=== PATIENT | female | born 1950 | race Caucasian/White ===

== ENCOUNTER 2019-08-31 13:11 | Outpatient (CLI) | payer MEDICARE ==
--- NOTE | 2019-08-31 13:57 | MMO ---
Bilateral MAMMO Bilat Screen [facility]. CLINICAL HISTORY: Patient is 68 years old and is seen for screening. The patient has the following family history of breast cancer: daughter, at age 45. The patient has no personal history of cancer. The patient has a history of right Excisional Biopsy in December, - benign. VIEWS: The views performed were: bilateral craniocaudal with tomosynthesis and bilateral mediolateral oblique with tomosynthesis. FILMS COMPARED: The present examination has been compared to prior imaging studies performed at [facility] on 02/09/2015, 02/19/2016, 02/25/2016 and 04/07/2017. This study has been interpreted with the assistance of computer-aided detection. MAMMOGRAM FINDINGS: The breasts are heterogeneously dense, which could obscure a lesion on mammography. There are stable benign appearing calcifications seen in both breasts. There are also vascular calcifications. There are no suspicious masses, suspicious calcifications, or new areas of architectural distortion. IMPRESSION: THERE IS NO MAMMOGRAPHIC EVIDENCE OF MALIGNANCY. A ROUTINE FOLLOW-UP MAMMOGRAM IN 1 YEAR IS RECOMMENDED. THE RESULTS OF THIS EXAM WERE SENT TO THE PATIENT. ACR BI-RADS Category 2 - Benign finding MAMMOGRAPHY NOTE: 1. A negative mammogram report should not delay a biopsy if a dominant of clinically suspicious mass is present. 2. Approximately 10% to 15% of breast cancers are not detected by mammography. 3. Adenosis and dense breasts may obscure an underlying neoplasm. Reported by: DILIA GASPAR MD Electonically Signed: [id number]
== END 2019-08-31 13:12 | disposition home or self-care (01) ==
LOC: BICMAMMO 13:11
PROVIDERS: ATTEND Internal Medicine
DX: Z12.31 Encounter for screening mammogram for malignant neoplasm of breast (principal); Z80.3 Family history of malignant neoplasm of breast; Z91.89 Other specified personal risk factors, not elsewhere classified
CPT/HCPCS: 77063; 77067

== ENCOUNTER 2020-01-02 10:24 | Outpatient (CLI) | payer MEDICARE ==
--- NOTE | 2020-01-02 10:56 | RAD ---
EXAM: XR Cerv Sp Ap Lat STANDARD PROVIDED CLINICAL HISTORY: Right shoulder and neck pain. No known injury cervical radiculopathy COMPARISON: None FINDINGS: C1 to cervicothoracic junction is seen on provided lateral images. There is straightening of the norm al cervical lordotic curvature There is trace retrolisthesis of C5 on C6 on extension which corrects on flexion. No anterior subluxation is seen. The vertebral body heights are within normal li mits. Scattered osteophytes are seen in the cervical spine. There is mild narrowing of the intervertebral disc spaces at the C4-5 and C6-7 levels. Prevertebral soft tissues are within normal l imits. IMPRESSION: Mild degenerative changes in the cervical spine with trace retrolisthesis of C5 on C6 seen on extensi on which corrects on flexion.
--- NOTE | 2020-01-02 11:42 | MRI ---
MRI cervical spine noncontrast: DATE: 01/02/2020 HISTORY: 69-year-old female with cervical radiculopathy and neck pain COMPARISON: None FINDINGS: Reversal of curvature, with fulcrum of the mild kyphosis at C4-5. Vertebral body heights are maintained. No major bone marrow signal abnormality. Cervical spinal cord is normal in size and signal. Disc space narrowing is mild to moderate at C4-5, mild at C5-6, and mild to moderate at C6-7. C1-2: No central stenosis. C2-3: Normal disc. No central or high-grade neural foraminal stenosis. Incompletely evaluated at leas t moderate right facet DJD. Moderate to severe left facet DJD. C3-4: No high-grade right facet DJD. Moderate to severe left facet DJD. Disc space maintained. Minima l anterolisthesis of C3 on C4. No central stenosis. No right neural foraminal stenosis. Moderate left neural foraminal stenosis. C4-5: Broad-based disc-osteophyte complex abuts and slightly indents the ventral surface of the spina l cord. Despite this, there is no central spinal canal stenosis. Moderate sized right uncinate process osteophytes cause moderate to severe right neural foraminal stenosis. Small left uncinate pro cess osteophytes. Mild left neural foraminal stenosis. Moderate left facet DJD. Right facet complex incompletely imaged on sagittal sequences. C5-6: Moderate size bilateral uncinate process osteophytes cause severe right neural foraminal stenos is and moderate to severe left neural foraminal stenosis. Broad-based disc-osteophyte complex. Thickened ligamentum flavum. Moderate central spinal canal stenosis. C6-7: In addition to a broad-based disc-osteophyte complex that encroaches upon ventral aspect of spi nal canal, there is a shallow focal left paracentral disc protrusion. Moderate size right and small left uncinate process osteophytes. Mild to moderate right and moderate left neural foraminal stenosis . Normal facet joints. No high-grade central stenosis. C7-T1: Spinal canal is generous in caliber. Mild right facet DJD. Normal left facet joint. No neural foraminal stenosis. IMPRESSION: 1.) Cervical spondylosis consisting of high-grade left upper facet joints osteoarthrosis, and several levels of low-grade degenerative disc disease. 2) multilevel high-grade neural foraminal stenosis.
== END 2020-01-02 10:25 | disposition home or self-care (01) ==
LOC: TBSIIMAG 10:24
PROVIDERS: ATTEND Neurological Surgery
DX: M47.22 Other spondylosis with radiculopathy, cervical region (principal); M48.02 Spinal stenosis, cervical region; M50.121 Cervical disc disorder at C4-C5 level with radiculopathy
CPT/HCPCS: 72040; 72141

== ENCOUNTER 2021-05-07 11:03 | Outpatient (CLI) | payer MEDICARE | END 2021-05-07 11:04 | disposition home or self-care (01) | LOC: BICMAMMO 11:03 | PROVIDERS: ATTEND Internal Medicine | DX: Z12.31 Encounter for screening mammogram for malignant neoplasm of breast (principal); Z91.89 Other specified personal risk factors, not elsewhere classified; Z80.3 Family history of malignant neoplasm of breast | CPT/HCPCS: 77063; 77067 ==

== ENCOUNTER 2021-06-17 14:37 | Outpatient (CLI) | payer MEDICARE | END 2021-06-17 14:38 | disposition home or self-care (01) | LOC: SCSMRI 14:37 | PROVIDERS: ATTEND Family Medicine | DX: M47.816 Spondylosis without myelopathy or radiculopathy, lumbar region (principal); M51.9 Unspecified thoracic, thoracolumbar and lumbosacral intervertebral disc disorder; G89.4 Chronic pain syndrome; M51.36 Other intervertebral disc degeneration, lumbar region; M48.061 Spinal stenosis, lumbar region without neurogenic claudication | CPT/HCPCS: 72100; 72148 ==

== ENCOUNTER 2022-04-15 13:47 | Outpatient (CLI) | payer MEDICARE | END 2022-04-15 13:48 | disposition home or self-care (01) | LOC: BICULT 13:47 | PROVIDERS: ATTEND Urology | DX: N39.0 Urinary tract infection, site not specified (principal) | CPT/HCPCS: 76770 ==